=== PATIENT | female | born 1955 | race Caucasian/White ===

== ENCOUNTER 2020-03-29 16:36 | Emergency (ER) | payer OTHER ==
[~2020-03-29] VITALS: Ht 162.6 cm; Wt 76.4 kg
[2020-03-29] MEDS ORDERED: ROSU5TAB5 PO (16:46)
[2020-03-29] MEDS ORDERED: IRBE300T12 PO (16:46)
[2020-03-29] MEDS ORDERED: CELE1CAP9 PO (16:46)
[2020-03-29] MEDS ORDERED: OMEP-221 PO (16:46)
[2020-03-29] MEDS ORDERED: ACETAMINOPHEN 500 MG TAB PO ONE (17:45)
[2020-03-29] MEDS ORDERED: diazePAM 10 MG TAB PO ONE (17:45)
--- NOTE | 2020-03-29 18:34 | REPVR ---
PROCEDURE INFORMATION: Exam: CT Lumbar Spine Without Contrast Exam date and time: 03/29/2020 6:06 PM Age: 64 years old Clinical indication: Other: Pain R leg; Additional info: Heavy lifting, pain R leg, can't wb TECHNIQUE: Imaging protocol: Computed tomography images of the lumbar spine without contrast. Radiation optimization: All CT scans at this facility use at least one of these dose optimization techniques: automated exposure control; mA and/or kV adjustment per patient size (includes targeted exams where dose is matched to clinical indication); or iterative reconstruction. COMPARISON: No relevant prior studies available. FINDINGS: Vertebrae: No acute fracture. Normal alignment. L1-L2: No significant disc protrusion. No severe spinal canal stenosis. No significant neural foraminal narrowing. L2-L3: Minimal disc bulge. Bilateral facet hypertrophy. No spinal canal stenosis. no neural foraminal narrowing. L3-L4: Mild disc bulge. Bilateral facet hypertrophy. No spinal canal stenosis. Mild bilateral neural foraminal narrowing. L4-L5: Mild disc bulge. Bilateral facet hypertrophy. No spinal canal stenosis. No neural foraminal narrowing. L5-S1: No significant disc protrusion. No severe spinal canal stenosis. No significant neural foraminal narrowing. Vasculature: Atherosclerotic calcification of the abdominal aorta. Soft tissues: Unremarkable. IMPRESSION: Multilevel degenerative disc disease. Mild bilateral neural foraminal narrowing at L3-L4. No spinal canal stenosis. Electronically signed by: Romie Travis On 03/29/2020 18:34:26 PM
[2020-03-29] MEDS ORDERED: PRED20TA PO (19:21)
[2020-03-29] MEDS ORDERED: ROBA750T4 PO (19:21)
[2020-03-29 19:30] VITALS: BP 184/88
[2020-03-29] MEDS ORDERED: predniSONE 20 MG TAB PO ONE (19:30)
== END 2020-03-29 19:49 | disposition home or self-care (01) ==
LOC: M ED 16:36
DX: M54.31 Sciatica, right side (principal); S39.012A Strain of muscle, fascia and tendon of lower back, initial encounter; X50.0XXA Overexertion from strenuous movement or load, initial encounter; Y92.009 Unspecified place in unspecified non-institutional (private) residence as the place of occurrence of the external cause; I10 Essential (primary) hypertension; Z90.710 Acquired absence of both cervix and uterus; Z79.899 Other long term (current) drug therapy; Z88.0 Allergy status to penicillin; Z88.7 Allergy status to serum and vaccine; Z88.8 Allergy status to other drugs, medicaments and biological substances

== ENCOUNTER → 2022-10-17 | Outpatient (CLI) | payer MEDICARE ==
[~2022-10-17] MED LIST: CELE1CAP9 PO; IRBE300T12 PO; OMEP40CA5 PO; PRED20TA PO; ROBA750T4 PO; ROSU5TAB5 PO
== END ==
LOC: M RAD 15:16
PROVIDERS: ATTEND Nurse Practitioner Adult Health
DX: E07.9 Disorder of thyroid, unspecified (principal)

== ENCOUNTER → 2022-12-02 | Outpatient (CLI) | payer MEDICARE, OTHER ==
[2022-12-02 17:56] LABS: FREE T4 1.02 NG/DL (0.89-1.76)
[2022-12-02 17:58] LABS: THYROID STIMULATING HORMONE 2.544 uIU/ML (0.55-4.78)
[2022-12-02 17:59] LABS: C REACTIVE PROTEIN QUANTITATIV < 0.40 MG/DL (<1.0); TOTAL 25(OH) VITAMIN D 42.4 NG/ML (20.0-100.0)
== END ==
LOC: M PLALAB 14:56
PROVIDERS: ATTEND Internal Medicine Endocrinology, Diabetes & Metabolism
DX: E04.1 Nontoxic single thyroid nodule (principal); M79.10 Myalgia, unspecified site; Z79.899 Other long term (current) drug therapy

== ENCOUNTER → 2022-12-05 | Outpatient (REF) | payer MEDICARE, OTHER | LOC: M LAB REF 17:01 | PROVIDERS: ATTEND Internal Medicine Endocrinology, Diabetes & Metabolism | DX: E04.2 Nontoxic multinodular goiter (principal) ==

== ENCOUNTER → 2023-04-08 | Outpatient (REF) | payer MEDICARE, OTHER ==
[2023-04-09 12:07] LABS: ANTINUCLEAR ANTIBODIES DIRECT Negative (Negative)
== END ==
LOC: M LAB REF 13:52
PROVIDERS: ATTEND Nurse Practitioner Adult Health
DX: R74.01 Elevation of levels of liver transaminase levels (principal)